=== PATIENT | female | born 1995 | race Caucasian/White ===

== ENCOUNTER 2016-06-17 17:59 | Emergency (ER) | payer MEDICAID ==
[2016-06-17 18:52] LABS: BASOPHILS 0.5 % (0.0-2.0); EOSINOPHILS 1.8 % (0-7); HEMATOCRIT 42.7 % (36.0-48.0); HEMOGLOBIN 13.8 g/dL (12-16); IMMATURE GRANULOCYTES 0.4 % (0-5); LYMPHOCYTES 25.2 % (15-50); MCH 28.9 pg (26.0-34.0); MCHC 32.3 g/dL (31.0-37.0); MCV 89.3 fL (80.0-100.0); MEAN PLATELET VOLUME 10.4 fL (7.4-10.4); MONOCYTES 12.8 % (2-11); NEUTROPHILS 59.3 % (40-80); PLATELET COUNT 333 10x3/uL (130-400); RBC 4.78 10x6/uL (4.00-5.40); RDW 14.3 % (11.5-14.5); WBC 8.4 10x3/uL (4.8-10.8)
[2016-06-17 18:58] LABS: UDS - AMPHET POSITIVE QUAL (NEGATIVE); UDS - BARB NEGATIVE QUAL (NEGATIVE); UDS - BENZO NEGATIVE QUAL (NEGATIVE); UDS - COCAINE NEGATIVE QUAL (NEGATIVE); UDS - METH NEGATIVE QUAL (NEGATIVE); UDS - OPIATE NEGATIVE QUAL (NEGATIVE); UDS - PCP NEGATIVE QUAL (NEGATIVE); UDS - THC NEGATIVE QUAL (NEGATIVE)
[2016-06-17 19:02] LABS: HCG SERUM NEGATIVE (NEGATIVE)
[2016-06-17 19:07] LABS: ALBUMIN 3.7 g/dL (3.4-5.0); ALKALINE PHOSPHATASE 56 U/L (46-116); ALT (SGPT) 20 U/L (10-68); BILIRUBIN - TOTAL 0.41 mg/dL (0.2-1.3); CALC OSMOLALITY 275 mosm/kg (275-300); CALCIUM 8.2 mg/dL (8.5-10.1); CARBON DIOXIDE 27.4 mmol/L (21.0-32.0); CHLORIDE - SERUM 102 mmol/L (98-107); CREATININE - SERUM 0.9 mg/dL (0.6-1.3); GLUCOSE 87 mg/dL (74-106); POTASSIUM - SERUM 3.4 mmol/L (3.5-5.1); PROTEIN - SERUM 7.6 g/dL (6.4-8.2); SODIUM 139 mmol/L (136-145); UREA NITROGEN 10 mg/dL (7-18); eGFR NON AFRICAN AMERICAN 84 mL/min (90-120)
[2016-06-17 19:09] LABS: APPEARANCE TURBID (CLEAR); COLOR YELLOW (YELLOW)
[2016-06-17 19:10] LABS: BACTERIA MANY /hpf (NONE SEEN); BILIRUBIN NEGATIVE (NEGATIVE); EPITHELIAL CELLS 0-5 /hpf (0-5); GLUCOSE NEGATIVE (NEGATIVE); KETONE SMALL mg/dL (NEGATIVE); LEUKOCYTE ESTERASE 2+ (NEGATIVE); NITRITE POSITIVE (NEGATIVE); PROTEIN NEGATIVE (NEGATIVE); RED CELLS - URINE NONE SEEN /hpf (0-5); SPECIFIC GRAVITY 1.025 (1.005-1.020); UROBILINOGEN NORMAL (NORMAL)
[2016-06-24 00:34] VITALS: BMI 44.2
== END 2016-06-17 22:15 | disposition short-term general hospital (02) ==
LOC: D.ER 17:59
PROVIDERS: Emergency Medicine
DX: R45.851 Suicidal ideations (principal); F33.9 Major depressive disorder, recurrent, unspecified; N39.0 Urinary tract infection, site not specified; L30.8 Other specified dermatitis; F42.9 Obsessive-compulsive disorder, unspecified; F60.3 Borderline personality disorder; F41.9 Anxiety disorder, unspecified; I10 Essential (primary) hypertension; K58.9 Irritable bowel syndrome, unspecified; G47.00 Insomnia, unspecified; F17.200 Nicotine dependence, unspecified, uncomplicated; F15.10 Other stimulant abuse, uncomplicated

== ENCOUNTER 2016-06-23 20:27 | Observation (INO) | payer MEDICAID ==
[~2016-06-23] VITALS: Ht 165.1 cm; Wt 120.6 kg
[2016-06-23 21:14] LABS: BASOPHILS 0.4 % (0.0-2.0); EOSINOPHILS 2.7 % (0-7); HEMATOCRIT 40.5 % (36.0-48.0); HEMOGLOBIN 12.8 g/dL (12-16); IMMATURE GRANULOCYTES 0.2 % (0-5); MCH 28.4 pg (26.0-34.0); MCHC 31.6 g/dL (31.0-37.0); MCV 89.8 fL (80.0-100.0); MEAN PLATELET VOLUME 10.2 fL (7.4-10.4); MONOCYTES 11.2 % (2-11); NEUTROPHILS 56.5 % (40-80); PLATELET COUNT 298 10x3/uL (130-400); RBC 4.51 10x6/uL (4.00-5.40); RDW 14.4 % (11.5-14.5); WBC 9.1 10x3/uL (4.8-10.8)
[2016-06-23 21:22] LABS: HCG SERUM NEGATIVE (NEGATIVE)
[2016-06-23 21:30] LABS: ALBUMIN 3.3 g/dL (3.4-5.0); ALKALINE PHOSPHATASE 57 U/L (46-116); ALT (SGPT) 19 U/L (10-68); BILIRUBIN - TOTAL 0.19 mg/dL (0.2-1.3); CALC OSMOLALITY 277 mosm/kg (275-300); CALCIUM 8.8 mg/dL (8.5-10.1); CARBON DIOXIDE 22.9 mmol/L (21.0-32.0); CHLORIDE - SERUM 106 mmol/L (98-107); CREATININE - SERUM 0.8 mg/dL (0.6-1.3); GLUCOSE 103 mg/dL (74-106); POTASSIUM - SERUM 3.5 mmol/L (3.5-5.1); PROTEIN - SERUM 6.9 g/dL (6.4-8.2); SODIUM 140 mmol/L (136-145); UREA NITROGEN 9 mg/dL (7-18); eGFR NON AFRICAN AMERICAN > 90 mL/min (90-120)
[2016-06-23 22:00] LABS: UDS - AMPHET NEGATIVE QUAL (NEGATIVE); UDS - BARB NEGATIVE QUAL (NEGATIVE); UDS - BENZO POSITIVE QUAL (NEGATIVE); UDS - COCAINE NEGATIVE QUAL (NEGATIVE); UDS - METH NEGATIVE QUAL (NEGATIVE); UDS - OPIATE NEGATIVE QUAL (NEGATIVE); UDS - PCP NEGATIVE QUAL (NEGATIVE); UDS - THC NEGATIVE QUAL (NEGATIVE)
[2016-06-24] VITALS (13 sets, daily range): BP systolic 110–138; BP diastolic 60–82; Ht 165.1 cm; Wt 120.6 kg
--- NOTE | 2016-06-24 00:45 | NUR ---
RECEIVED PATIENT FROM ER TO 2310, ASSESSMENT COMPLETED PER FLOWSHEET. PATIENT IS ORIENTED BUT LETHARGIC, FELL DEEPLY ASLEEP BEFORE COMPLETING ASSESSMENT. EYES PERRLA @ 3MM WITH BRISK RESPONSE, SCLERA IS REDDENED. PATIENT ON 2L O2 VIA NC, OXYGEN SAT 97%. ORAL/NASAL MUCOSA IS MOIST AND INTACT, TONGUE IS MIDLINE. S1/S2 NOTED WITH PATIENT SINUS TACHYCARDIC ON TELEMETRY WITH HR 101, RHYTHMIC AND REGULAR. LUNG SOUNDS ARE CLEAR BILATERAL UPPER WITH DIMINISHED LOWER, BREATHING IS EVEN AND EFFORTLESS WITH PERIODS OF APNEA LASTING LESS THAN 3 SEC. ABDOMEN IS SOFT AND ROUND, BOWEL SOUNDS ACTIVE X4. PATIENT HAS FULL ROM ALL EXTREMITIES, SLIGHT WEAKNESS NOTED. BANANA GRADER/PEDAL STRENGTH IS EQUAL AND BILATERAL, GAIT IS UNSTEADY. 20G PIV NOTED R AC, PATENT WITH FLUIDS INFUSING. PATIENT DENIES PAIN OR OTHER NEEDS AT THIS TIME, ALL VSS AND WILL CONTINUE TO MONITOR.
--- NOTE | 2016-06-24 03:02 | NUR ---
REASSESSMENT COMPLETE PER FLOWSHEET, PATIENT RESTING IN BED WITH EYES CLOSED. PATIENT TACHYCARDIC ON TELEMETRY WITH HR OF 112, RHYTHMIC AND REGULAR. BREATHING IS EVEN AND UNLABORED, LUNG SOUNDS CLEAR BILATERAL UPPER WITH DIMINISHED LOWER. PATIENT IS LETHARGIC BUT ROUSES TO VOICE, CAN FOLLOW COMMANDS BUT RETURNS TO SLEEP QUICKLY. DENIES PAIN OR OTHER NEEDS AT THIS TIME, ALL VSS AND WILL CONTINUE TO MONITOR.
--- NOTE | 2016-06-24 03:50 | NUR ---
PATIENT REMOVED CANNULA ON OWN, PATIENT OXYGEN SAT AT 98% ON ROOM AIR. ALL VSS AND WILL CONTINUE TO MONITOR.
[2016-06-24 08:45] LABS: T4 THYROXIN - FREE 1.01 ng/dL (0.76-1.46); THYROID STIMULATING HORMONE 6.21 uIU/mL (0.36-3.74)
--- NOTE | 2016-06-24 09:14 | NUR ---
Is the patient Alert and Oriented? Yes 0 * How many steps to enter\exit or inside your home? 0 0 * PCP FEMALE MD IN [place], STATES SHE DOES NOT RECALL HER NAME 0 * Pharmacy [facility] IN [place] 0 * Preadmission Environment Home with Family 0 * ADLs Independent 0 * Equipment None 0 * List name and contact numbers for known caregivers / representatives who currently or will assist patient after discharge: STEP-MOTHER: DRE TAMAYO [phone] * Community resources currently utilized None 0 * Additional services required to return to the preadmission environment? Yes 0 * Can the patient safely return to the preadmission environment? No 0 * Has this patient been hospitalized within the prior 30 days at any hospital? No PATIENT IS IN ICU DUE TO UNINTENTIONAL OD. PATIENT STATES SHE LIVES AT HOME WITH HER STEP MOTHER, DRE TAMAYO. PATIENT'S PCP IS A WOMAN MD IN [place] AND SHE STATES SHE DOES NOT RECALL HER NAME. SHE STATES SHE GETS HER MEDICTION AT [facility] IN [place]. PATIENT DENIES USE OF ANY EQUIPMENT AND DENIES EVER HAVING HOME HEALTH. SHE STATES THERE ARE NO STEPS TO ENTER HER HOME. PATIENT STATES SHE IS INTERESTED IN DRUG REHAB. SHE STATES SHE WAS AT [facility] ABOUT A WEEK AGO AND WAS GIVEN INFORMATION AT THAT TIME. SHE STATES THAT SHE CALLED [facility] AND LEFT MESSAGES BUT THEY NEVER CALLED HER BACK. PATIENT HAS A PSYCH EVAL PENDING. I TOLD HER AT DISCHARGE WE WOULD ASSIST HER WITH RESOURCES FOR PLACEMENT IN DRUG REHAB.
--- NOTE | 2016-06-24 10:00 | NUR ---
REPORT RECD PT CARE ASSUMED. PT IS RESTING IN BED QUIETLY AT THIS TIME.
--- NOTE | 2016-06-24 11:00 | NUR ---
PT UP OUT OF BED AT DOOR. PT UPDATED ON PROCEDURE AND PROVIDED WITH SANDWICH TRAY.
--- NOTE | 2016-06-24 13:54 | NUR ---
SPOKE WITH DR GARCIA. OK WITH PT PLACEMENT TODAY.
--- NOTE | 2016-06-24 14:14 | NUR ---
PATIENT AGREES TO INPATIENT PSYCH AND ASSITANCE WITH HER DRUG ABUSE. SHE IS WILLING TO GO TO INPATIENT PSYCH VOLUNTARILY. I HAVE SPOKEN WITH ALFREDO AT [facility] IN [place]. I HAVE FAXED HER CLINICAL INFORMATON TO THEM AND WILL AWAIT CALL BACK.
--- NOTE | 2016-06-24 15:03 | NUR ---
PATIENT IS ACCEPTED BY DR. BERRIOS AT [facility] IN [place]. SHE WILL GO TO ROOM 211 BED 2. THE NURSE WILL CALL REPORT TO PRIYANKA OR LALITHA AT [phone]. PATIENT WILL BE TRANSPORTED BY AMBULANCE.
--- NOTE | 2016-06-24 15:35 | NUR ---
REPORT CALLED TO [facility] RN. PT STEP MOTHER HAS BEEN CONTACTED.
--- NOTE | 2016-06-24 17:15 | NUR ---
[facility] HERE TO TRANSPORT PT. PT LOADED ON TO [facility] AND ACCOMPANIED BY EMS.
--- NOTE | 2016-06-25 08:28 | CN ---
PATIENT NAME:CHRISTIANO TAMAYO MEDICAL RECORD: [id number] : 95 LOCATION:[facility].2310 ADMIT DATE: 06/23/16 ACCOUNT: [id number] CONSULTING PHYSICIAN: DINESH METZ MD REFERRING PHYSICIAN: ASHA HILL DO DATE OF CONSULTATION: 06/24/2016 Psychiatric Consultation IDENTIFYING DATA: The patient is 21 years old and she is admitted to the hospital secondary to an overdose. CHIEF COMPLAINT: None. HISTORY OF PRESENT ILLNESS: The patient has a long history of psychiatric disease including multiple attempts to harm herself and previous inpatient and outpatient psychiatric treatment. She presented to the Emergency Room yesterday, obtunded, and was found to have taken a large amount of Klonopin and Xanax. The patient now denies that she was seeking to kill herself, but states she really does not care if she lives or dies. She endorses numerous neurovegetative depressive symptoms and says that she has an interest in some kind of substance abuse treatment. MENTAL STATUS EXAMINATION: The patient is awake, alert and oriented to person, place, time and somewhat to situation. Her mood is depressed. Her affect is appropriate. Thought processes are circumstantial. Memory, concentration and abstraction abilities are mildly impaired and she denies that she would seek to harm herself or others. ASSESSMENT: 1. Status post overdose. 2. Bipolar disorder by history. 3. Personality disorder by history. 4. History of polysubstance abuse. PLAN: At this time, the patient has a long history of wanting to harm herself. She has no or little insight about her situation. She was just discharged from inpatient psych one week ago and now is back with an overdose. I think she is potentially dangerous to herself and I am recommending inpatient mental health treatment. Based upon the outcome of that mental health treatment, it may be appropriate for her to go to a substance abuse treatment program of some sort, but from the ICU at this hospital, I am recommending inpatient treatment on a behavioral unit. It would seem appropriate to me to send her back to [facility] since she just left there and they have understanding of her that is current. TRANSINT:[id number] Voice Confirmation ID: [id number] DOCUMENT ID: [id number] CONSULT REPORT [id number] TAMAYOCHRISTIANO Marge DINESH METZ MD at 0828 CC: [id number] DICTATION DATE: 06/24/16 1331 OUTSOLE PARAFFINER: 06/24/16 1415 DIS IN 06/24/16 [facility] [address] [facility] [place] [address]
--- NOTE | 2016-06-28 07:47 | HP ---
PATIENT: CHRISTIANO TAMAYO MEDICAL RECORD: [id number] ACCOUNT: [id number] LOCATION:[facility] D.2310 : 95 ADMISSION DATE: 06/23/16 HISTORY AND PHYSICAL EXAMINATION Admission History and Physical HISTORY OF PRESENT ILLNESS: A 21-year-old female, who presented to the Emergency Room late last night, early this morning, very somnolent and was found to be positive for benzo. She has extensive psych history, was just discharged from [facility], had been here the previous week and was discharged from this hospital on the to [facility]. She admits overdosing on benzos. She also has a history of meth abuse. She reports being on numerous medications for bipolar disorder, depression, and personality disorder, is in between doctors, limited historian at this time, she is still sedated from her benzo intake. REVIEW OF SYSTEMS: Significant as above, extensive psych history with hospitalizations. Extensive substance abuse history with reported meth use in the past. PHYSICAL EXAMINATION: VITAL SIGNS: Temperature 98.4, blood pressure 119/82, heart rate 115, respirations 20, and O2 sats 96% on room air. GENERAL: Alert to person, limited historian, still obviously intoxicated from the benzos. HEENT: Normocephalic and atraumatic. Eyes: Pupils are reactive. Ears: Canals patent. Nose: Nares patent. Throat: No erythema. NECK: Supple. No lymphadenopathy. HEART: Regular and tachycardic. LUNGS: Clear to auscultation bilaterally. Breathing is nonlabored. ABDOMEN: Soft and nontender. Bowel sounds positive. EXTREMITIES: Present times 4, no edema. NEUROLOGIC: No appreciable focal deficits. She is somewhat sedated. DIAGNOSTIC DATA: EKG, sinus tachycardia, rate 100. No significant changes. LABORATORY DATA: Urine drug screen positive only for benzos. With her history of being on lithium in the past, we will obtain a lithium level, also history of hypothyroidism, we will obtain thyroid profile. ASSESSMENT AND PLAN: 1. Intentional intoxication from benzos with recent hospitalization for suicidal ideation. We will consult psychiatry, keep the patient in the ICU until cleared by psychiatry. We will check a lithium level as noted above. 2. History of hypothyroidism. We will check thyroid profile. 3. Polysubstance abuse, counseled on drug rehabilitation. manager speech to assist with placement after medically cleared and cleared by psych. TRANSINT:[id number] Voice Confirmation ID: [id number] DOCUMENT ID: [id number] HISTORY AND PHYSICAL [id number] CHRISTIANO TAMAYO, ASHA QUIROZ at 0747 CC: [id number] DICTATION DATE: 06/24/1636 GEAR MACHINE OPERATOR GENERAL: 06/24/16 0806 DIS IN 06/24/16 [place] [id number] [place] [id number]
--- NOTE | 2016-08-21 11:20 | DS ---
PATIENT:CHRISTIANO TAMAYO :95 MEDICAL RECORD: [id number] DISCHARGE SUMMARY ADMISSION DATE: 06/23/16 DISCHARGE DATE: 06/24/16 A 21-year-old female. DATE OF ADMISSION: 06/23/2016. DATE OF DISCHARGE: 06/24/2016. ADMISSION DIAGNOSES: Intentional intoxication from benzos with recent hospitalization for suicidal ideation, history of hypothyroidism, polysubstance abuse. DISCHARGE DIAGNOSES: Intentional intoxication from benzos with recent hospitalization, history of hypothyroidism, polysubstance abuse, bipolar disorder, and personality disorder. HOSPITAL COURSE: The patient was admitted to the Emergency Room unassigned medicine with a reported intentional overdose. She was somewhat somnolent, but in no distress. Vital signs were stable with a temperature of 98.4, blood pressure 119/82, heart rate slightly tachycardic at 115. Urine drug screen only positive for benzos. EKG showed sinus tachycardia with a rate of 100, no significant changes. The patient was admitted to the ICU, monitored, became more alert. Psychiatry consulted. Cleared for discharge back to [facility]. The patient was discharged in stable and improved condition. Also, counseled for drug rehab upon discharge from the behavioral unit. Agree with the assessment from Dr. Finch. See chart for further details. TRANSINT:[id number] Voice Confirmation ID: [id number] DOCUMENT ID: [id number] ASHA HILL DO at 1120 CC: [id number] DICTATION DATE: 08/20/16 171 AUTO DESIGN CHECKER: 08/20/162118 DIS IN 06/24/[address] [address]
== END 2016-06-24 16:30 | disposition short-term general hospital (02) ==
LOC: D.ER 20:27 → D.ICU 23:23 → OBSVTIME 23:23 → D.ICU 23:23
PROVIDERS: Emergency Medicine; ADMIT Family Medicine
DX: T42.4X2A Poisoning by benzodiazepines, intentional self-harm, initial encounter (principal); F31.9 Bipolar disorder, unspecified; F60.9 Personality disorder, unspecified; E03.9 Hypothyroidism, unspecified